=== PATIENT | male | born 1990 | race African-American/Black ===

== ENCOUNTER 2016-11-13 16:05 | Emergency (ER) | payer BC ==
[~2016-11-13] VITALS: Ht 175.3 cm; Wt 90.9 kg
[2016-11-13 18:16] VITALS: BP 101/68
== END 2016-11-13 18:17 | disposition home or self-care (01) ==
LOC: EME 16:05
DX: S93.401A Sprain of unspecified ligament of right ankle, initial encounter (principal); W18.09XA Striking against other object with subsequent fall, initial encounter
CPT/HCPCS: 73610; 99281; 99282

== ENCOUNTER 2018-04-26 10:19 | Emergency (ER) | payer SELFPAY ==
[~2018-04-26] VITALS: Ht 177.8 cm; Wt 88.8 kg
[2018-04-26 13:27] LABS: SOURCE URINE
[2018-04-26 13:55] VITALS: BP 142/96
[2018-04-27 16:26] LABS: CHLAMYDIA TRACHOMATIS NEGATIVE; NEISSERIA GONORRHOEAE POSITIVE
== END 2018-04-26 13:55 | disposition home or self-care (01) ==
LOC: EME 10:19
PROVIDERS: Physician Assistant
DX: N28.89 Other specified disorders of kidney and ureter (principal); Z20.2 Contact with and (suspected) exposure to infections with a predominantly sexual mode of transmission
CPT/HCPCS: 87491; 87591; 99281; 99283; J0696

== ENCOUNTER 2018-05-18 16:12 | Emergency (ER) | payer OTHER ==
[~2018-05-18] VITALS: Ht 177.8 cm; Wt 91.0 kg
[2018-05-18 17:25] VITALS: BP 157/95
== END 2018-05-18 17:26 | disposition home or self-care (01) ==
LOC: EME 16:12
DX: S80.01XA Contusion of right knee, initial encounter (principal); S16.1XXA Strain of muscle, fascia and tendon at neck level, initial encounter; V49.40XA Driver injured in collision with unspecified motor vehicles in traffic accident, initial encounter; F17.200 Nicotine dependence, unspecified, uncomplicated
CPT/HCPCS: 72040; 73564; 99281; 99284